=== PATIENT | male | born 1965 | race Caucasian/White ===

== ENCOUNTER → 2017-05-30 | Outpatient (CLI) | payer OTHER ==
--- NOTE | 2017-05-30 11:08 | MR ---
EXAMINATION TYPE: MR brain wo con DATE OF EXAM: 05/30/2017 COMPARISON: NONE HISTORY: slurred speech, weakness T1-weighted sagittal, T2, FLAIR, and diffusion axial, and T2 coronal coronal views of the brain are s ubmitted. There is no evidence of acute ischemia. The ventricles, basal cisterns, and sulci overlying the conv exities are consistent with the patient's age. There is no mass effect. Craniocervical junction maintained. Sella turcica has a normal appearance. No cerebellopontine angle mass. Changes of chronic sinusitis noted. Changes of chronic mastoiditis no eyad. Findings suggest previous sinus surgery. IMPRESSION: 1. No acute intracranial process. 2. Findings suggest chronic sinusitis and mastoiditis.
== END | disposition home or self-care (01) ==
LOC: RADMRIMAIN 09:08
PROVIDERS: ATTEND Physician Assistant Medical
DX: R47.81 Slurred speech (principal)
CPT/HCPCS: 70551

== ENCOUNTER → 2017-08-03 | Outpatient (CLI) | payer OTHER ==
--- NOTE | 2017-08-03 12:04 | MR ---
EXAMINATION TYPE: MR brain wo/w con DATE OF EXAM: 08/03/2017 COMPARISON: Prior MRI May 30, 2017. HISTORY: Slurred Speech TECHNIQUE: Multiplanar, multisequence images of the brain and brainstem is performed without and with IV contras t, utilizing 10 mL intravenous Gadavist . FINDINGS: Diffusion weighted images demonstrate no evidence of a recent infarct or other diffusion ab normality. There is no extra-axial fluid collection or significant white matter signal abnormality. The ventricular system and cisternal spaces are normal in size and appearance. The brain volume is age appropriate. Midline structures demonstrate normal morphology. The craniocervical junction appears within normal limits. Post contrast images demonstrate no abnormal enhancement. The dural venous sinuses appear pa tent. The visualized sinuses are clear and the globes are intact. There is evidence of prior sinus denson rgery redemonstrated at level of ostiomeatal complexes. Minimal patchy increased fluid signal posteri or right mastoid air cells remains present. IMPRESSION: No significant finding is seen to account for patient's symptoms. No evidence of a recent infarct. No significant change from prior.
== END | disposition home or self-care (01) ==
LOC: RADMRIMAIN 11:13
PROVIDERS: ATTEND Nurse Practitioner Family
DX: R47.81 Slurred speech (principal)
CPT/HCPCS: 70553; A9581